=== PATIENT | female | born 1985 | race Caucasian/White ===

== ENCOUNTER 2018-06-25 23:33 | Observation (INO) | payer OTHER ==
[~2018-06-25] VITALS: Ht 165.1 cm; Wt 63.6 kg
[2018-06-25] MEDS ORDERED: ONDANSETRON 2MG/ML, 2ML ONE (23:56)
[2018-06-26] MEDS ORDERED: ONDANSETRON 2MG/ML, 2ML IVPush ONE
[2018-06-26] MEDS ORDERED: LACTATED RINGERS 1,000 ML IVBOLUS ONE
[2018-06-26 00:21] LABS: MICROSCOPIC INDICATED
[2018-06-26 00:47] VITALS: BP 111/68
[2018-06-26] MEDS ORDERED: ONDA8TAB12 PO (01:33)
== END 2018-06-26 02:45 | disposition home or self-care (01) ==
LOC: LDOP 23:33 → LDIP 06-26 00:36
PROVIDERS: ADMIT Obstetrics & Gynecology Gynecology; ATTEND Obstetrics & Gynecology Gynecology
DX: O62.9 Abnormality of forces of labor, unspecified (principal); O21.9 Vomiting of pregnancy, unspecified; Z3A.00 Weeks of gestation of pregnancy not specified; Z79.899 Other long term (current) drug therapy
CPT/HCPCS: 81001; 87086; 96374; G0378; J2405; J7120; 96360

== ENCOUNTER 2018-06-26 14:19 | Outpatient (CLI) | payer OTHER ==
[~2018-06-26] VITALS: Ht 167.6 cm; Wt 63.6 kg
[~2018-06-26 14:19] MED LIST: ONDA8TAB12 PO
[2018-06-26 15:30] LABS: MICROSCOPIC NOT IND
== END 2018-06-26 16:40 | disposition home or self-care (01) ==
LOC: LDOP 14:19
PROVIDERS: ATTEND Obstetrics & Gynecology Gynecology
DX: O26.892 Other specified pregnancy related conditions, second trimester (principal); M54.5 Low back pain; Z3A.22 22 weeks gestation of pregnancy
CPT/HCPCS: 59025; 81003; 87086; 99211; G0463